=== PATIENT | male | born 1945 | race Caucasian/White ===

== ENCOUNTER 2025-02-24 09:41 | Emergency (ER) | payer MEDICARE, OTHER ==
[2025-02-24 11:14] LABS: ALT (SGPT) 14 U/L (Less than 45); AST (SGOT) 45 U/L (11-34); Albumin 3.4 g/dL (3.1-4.5); Alkaline Phosphatase 107 U/L (40-110); Anion Gap 19 mmol/L (10-20); BUN (Urea Nitrogen) 81 mg/dL (8.4-25.7); Bilirubin, Total 1.3 mg/dL (0.3-1.2); Calc. Creatinine Clearance 0 mL/min (70-130); Calcium 9.5 mg/dL (7.8-10.44); Carbon Dioxide 28 mmol/L (23-31); Chloride 89 mmol/L (98-107); Globulin 4.3 g/dL (2.4-3.5); Glucose 136 mg/dL (83-110); Potassium 3.3 mmol/L (3.5-5.1); Sodium 133 mmol/L (136-145)
[2025-02-24 11:35] LABS: White Blood Cell (WBC) Count 18.6 10x3/uL (4.8-10.8)
[2025-02-24 11:36] LABS: #Basophils 0.1 thou/uL (0.0-0.2); #Eosinophils 0.0 thou/uL (0.0-0.7); #Lymphocytes 0.4 thou/uL (1.20-3.40); #Monocytes 0.6 thou/uL (0.11-0.59); #Neutrophils 17.5 thou/uL (1.40-6.50); %Basophils 0.3 % (0.0-1.0); %Eosinophils 0.1 % (0.0-10.0); %Lymphocytes 2.2 % (21.0-51.0); %Monocytes 3.0 % (0.0-10.0); %Neutrophils 94.3 % (42.0-75.0); Hematocrit 32.5 % (42.0-52.0); Hemoglobin 10.5 g/dL (14.0-18.0); Manual Diff?? NO; Mean Corpuscular Hemoglobin 38.3 pg (27.0-31.0); Mean Corpuscular Volume 118.0 fl (78.0-98.0); Platelet Count 420 10x3/uL (130-400); Red Blood Cell (RBC) Count 2.75 mill/uL (4.70-6.10)
[2025-02-24 12:09] LABS: Glucose, Urine (Dipstick) 100 mg/dL (Negative); Leukocyte Negative (Negative); Protein, Urine (Dipstick) 100 mg/dL (Neg-Trace); Specific Gravity, Urine 1.015 (1.005-1.030)
[2025-02-24 12:24] LABS: CAUTI Indications for Culture Pelvic or flank pain; RBC/HPF None Seen HPF (0-3); WBC/HPF None Seen HPF (0-3)
[2025-02-24 12:25] LABS: Urine Culture Reflex No No
[2025-02-24] MEDS ORDERED: cefTRIAXone (ROCEPHIN) 2 GM VIAL ONE (19:05)
[2025-02-24] MEDS ORDERED: Acetaminophen 500 MG TAB ONE (19:48)
== END 2025-02-24 20:59 | disposition short-term general hospital (02) ==
LOC: NAV ERS 09:41
DX: S32.415A Nondisplaced fracture of anterior wall of left acetabulum, initial encounter for closed fracture (principal); J90 Pleural effusion, not elsewhere classified; I13.0 Hypertensive heart and chronic kidney disease with heart failure and stage 1 through stage 4 chronic kidney disease, or unspecified chronic kidney disease; I50.9 Heart failure, unspecified; N18.9 Chronic kidney disease, unspecified; R65.10 Systemic inflammatory response syndrome (SIRS) of non-infectious origin without acute organ dysfunction; R29.700 NIHSS score 0; I25.10 Atherosclerotic heart disease of native coronary artery without angina pectoris; I25.2 Old myocardial infarction; E11.22 Type 2 diabetes mellitus with diabetic chronic kidney disease; Z95.0 Presence of cardiac pacemaker; Z95.1 Presence of aortocoronary bypass graft; Z79.899 Other long term (current) drug therapy; W01.0XXA Fall on same level from slipping, tripping and stumbling without subsequent striking against object, initial encounter; Y93.01 Activity, walking, marching and hiking; Y92.009 Unspecified place in unspecified non-institutional (private) residence as the place of occurrence of the external cause
CPT/HCPCS: 71045; 72170; 80053; 81001; 83605; 85025; 87040; 96365; 96367; 96375; J0696; J3010; J3373; J7030; J7050